=== PATIENT | female | born 1965 | race Caucasian/White ===

== ENCOUNTER 2017-02-08 11:22 | Emergency (ER) | payer OTHER ==
[2017-02-08 11:33] VITALS: BP 133/81; PULSE 75; TEMP 98.2; BMI 27.8
[2017-02-08] MEDS ORDERED: KETOROLAC TROMETHAMINE 30 MG/1 ML VIAL IM ONE (11:38)
--- NOTE | 2017-02-08 11:38 | PDOC ---
Attending Attestation - Resident Resident Name: AngieHeike - ED Attending Attestation I have performed the following: I have examined & evaluated the patient, The case was reviewed & discussed with the resident, I agree w/resident's findings & plan, Exceptions are as noted - HPI HPI: 02/08/17 14:41 51 yo F with ho chronic back pain s/p laminectomy and fusion lumbar sacaral spin, followed by Dr Hawkins on percocet 10/325 and valium 5mg, here with worsening pain and spasm. pt states the pain got much worse from baseline last pm no trauma no injury no change to activity. no urinary complaints. no weaknes or numbness that is new., pt states has mild chronic weakness in left leg and chronic sensory loss in her legs. no f/c no bowel or bladder incontinence. no mod factors. today was trying to take family member to doctor and pain became acutely worse. - Physicial Exam PE: 02/08/17 14:46 on exam pt awake alert, lungs clear bilaterally. heart rRR nomrg. abd soft NT ND. skin warm and dry. bilat lower ext 5/5 hip flex/ ext, knee flex / ext DF and PF. sensation mild decrease right anterior thign, ( old) no midline v. body tenderness. paraspinal pain lumbar region. no cva tenderness. - Medical Decision Making 02/08/17 11:36 51 yo F h/o treated breast CA, here with c/o low back pain spasm, normal nuero exam lower extremity strength. plan for xray spine due to h/o breast ca, nsaids , muscle relaxers, consider outpt steroids. reassess. 02/08/17 11:58 performed IStop evaluation to look at recent prescriptions., under name Paola Guerra, 61. receives narcotics 10/325 percocet and valim 5mg from dr. Kim her spine surgoen, last rx on 12/03/16 was given valium 5m #90, and perc 10mg/ 325 #90, also had same rx given 10/14/16. report number Reference #: [id number] . 02/08/17 14:48 pt feeling better, requesting to be dc home. has meds at home, no prescriptions given.
[2017-02-08] MEDS ORDERED: diazePAM 5 MG TABLET PO ONE ×2 (11:39→12:01)
[2017-02-08] MEDS ORDERED: KETOROLAC TROMETHAMINE 30 MG/1 ML VIAL ONE (11:47)
[2017-02-08] MEDS ORDERED: diazePAM 5 MG TABLET ONE ×2 (11:48→11:57)
--- NOTE | 2017-02-08 11:55 | PDOC ---
History of Present Illness - General Chief Complaint: Back Pain Stated Complaint: BACK PAIN Time Seen by Provider: 02/08/17 11:33 History Source: Patient Exam Limitations: No Limitations - History of Present Illness Initial Comments: 02/08/17 11:55 CC: Exacerbation of chronic back pain Patient is a 51 y.o. female with a PMH of lobular carcinoma (s/p B/L mastectomy) , four herniated discs (s/p laminectomy 2009 and spinal fusion 2011) who presents to our ED today c/o of back muscle spasm. Patient states she was helping her mother out of the car and felt pain in her back consistent with her prior exacerbation of her chronic back pain. Patient denies any urinary incontinence, fever, new loss of sensation or decreased range of motion. Patient notes she tried to call her spinal surgeon, Dr. Kim who manages her pain medication regimen, however he was out of town thus she came to the ED for pain relief. Timing/Duration: 1 hour Severity: moderate Modifying Factors: improves with: rest Associated Symptoms: reports: denies symptoms Past History - Past Medical History Allergies/Adverse Reactions: Allergies Allergy/AdvReac Type Severity Reaction Status Date / Time hydromorphone HCl AdvReac Intermediate Nausea Verified 07/13/16 15:02 [From Dilaudid] meperidine HCl [From Demerol] AdvReac Intermediate Nausea Verified 07/13/16 15: 02 Home Medications: Ambulatory Orders Gemfibrozil [Lopid -] 600 mg PO BID 08/03/11 Diazepam [Valium] 5 mg PO HS PRN 02/10/13 Docosahexanoic Acid/Epa [Fish Oil Softgel] 1 cap PO HS 08/08/13 Vitamin B Complex 100 mg PO DAILY 08/09/13 Magnesium 1,000 mg PO HS 04/12/14 l-Carnitine Fumarate [l-Carnitine] 200 mg PO DAILY 04/12/14 Thyroid,Pork [[place] Thyroid] 90 mg PO DAILY 07/29/14 Tizanidine HCl [Zanaflex] 4 mg PO HS PRN 07/29/14 Ibuprofen 600 mg PO QID PRN #30 tablet MDD 4 04/07/16 Niacin [Slo-Niacin] 250 mg PO BID 04/07/16 Turmeric Root Extract [Turmeric] 500 mg PO ASDIR 04/07/16 Ubidecarenone [Co Q-10] 10 mg PO BID 04/07/16 Anemia: No Asthma: No Cancer: Yes (Bilateral Breast) Cardiac Disorders: No CVA: No COPD: No CHF: No Dementia: No Diabetes: No GI Disorders: No Disorders: No HTN: No Hypercholesterolemia: No Liver Disease: No Suicide Attempt (Hx): No Seizures: No Thyroid Disease: No - Surgical History Abdominal Surgery: No Appendectomy: No Cardiac Surgery: No Cholecystectomy: No Lung Surgery: No Neurologic Surgery: No Orthopedic Surgery: Yes (Lumbar Fusion,Laminectomy) - Immunization History Immunization Up to Date: Yes - Psycho/Social/Smoking Cessation Hx Anxiety: No Suicidal Ideation: No Smoking Status: No Smoking History: Never smoked Have you smoked in the past 12 months: No Number of Cigarettes Smoked Daily: 0 Information on smoking cessation initiated: No Hx Alcohol Use: Yes (WEEKLY) Drug/Substance Use Hx: No Substance Use Type: Alcohol Hx Substance Use Treatment: No *Physical Exam - Vital Signs Last Vital Signs Temp Pulse Resp BP Pulse Ox 98.2 F 75 20 133/81 75 L 02/08/17 11:24 02/08/17 11:24 02/08/17 11:24 02/08/17 11:24 02/08/17 11:24 - Physical Exam General Appearance: Yes: Nourished, Appropriately Dressed HEENT: positive: EOMI, ANTON Neck: positive: Trachea midline, Supple Respiratory/Chest: positive: Lungs Clear, Normal Breath Sounds Cardiovascular: positive: Regular Rhythm, Regular Rate, S1, S2, Other (Patient intermittently tachycardic during initial PE - likely 2/2 to pain; tachcardia resolved during course of admission ) Musculoskeletal: positive: Normal Inspection (No midline tenderness, significant sacral TTP; Full ROM in back as well as UE/LE; no CVA tenderness) Extremity: positive: Normal Inspection 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 Patient does not exhibit any midline tenderness but has significant sacral TTP. Differential diagnosis includes exacerbation of chronic back pain vs. spinal metasasis of breast CA vs. cauda equina syndrome (less likely given no urinary incontinence) vs epidural abscess (less likely given absence of midline tenderness and no active infectious disease). A review of patient's pain meds on IStop showed that the patient has a single provider, Dr. Geovanny Kim for her pain management. As per IStop patient most recently recieved a prescription for Oxycodone (10/325) and Valium (5 mg) on 11/25/2016 which is consistent with the information provided by patient during her HPI. Spinal imaging showed no metasases and patient's pain was controlled with Toradol as well as her home dosage of Oxycodone and Decadron. Patient was discharged following significant improvement in her pain and instructed to follow-up with her spinal surgeon. *DC/Admit/Observation/Transfer Diagnosis at time of Disposition: Sacral back pain, Intractable low back pain - Discharge Dispostion Disposition: HOME Condition at time of disposition: Improved Admit: No - Patient Instructions Printed Discharge Instructions: Managing Chronic Low Back Pain, Back Pain ( Alternative Therapy), Exercise May Reduce Risk of Low Back Pain Additional Instructions: Please follow up with your PCP and spinal surgeon for further pain management. Please return to the ED should you experience severe pain or discomfort. - Attestations Physician Attestion: 02/08/17 14:16 I, Dr. Heike Adams, attest that this document has been prepared under my direction and personally reviewed by me in its entirety. I further attest, that it accurately reflects all work, treatment, procedures and medical decision -making performed by me.
[2017-02-08] MEDS ORDERED: OXYCODONE/APAP 5/325MG COMBO TABLET PO ONE (12:36)
[2017-02-08] MEDS ORDERED: diphenhydrAMINE HCL 25 MG CAPSULE (FP) PO ONE ×2 (12:45→12:49)
[2017-02-08] MEDS ORDERED: DEXAMETHASONE SOD PHOSPHATE 10 MG/1 ML VIAL IM ONE (13:16)
[2017-02-08] MEDS ORDERED: DEXAMETHASONE SOD PHOSPHATE 10 MG/1 ML VIAL ONE (13:17)
[2017-02-08] MEDS ORDERED: OXYCODONE/APAP 5/325MG COMBO TABLET ONE (13:24)
== END 2017-02-08 14:26 | disposition home or self-care (01) ==
LOC: FER 11:22
PROC: 3E033GC Introduction of Other Therapeutic Substance into Peripheral Vein, Percutaneous Approach (ICD-10-PCS; principal; 2017-02-08)
PROC: 3E0333Z Introduction of Anti-inflammatory into Peripheral Vein, Percutaneous Approach (ICD-10-PCS; 2017-02-08)
DX: M53.3 Sacrococcygeal disorders, not elsewhere classified (principal); M54.5 Low back pain; G89.29 Other chronic pain; Z85.3 Personal history of malignant neoplasm of breast; M51.9 Unspecified thoracic, thoracolumbar and lumbosacral intervertebral disc disorder
CPT/HCPCS: 72100-TC; 99282-25

== ENCOUNTER 2017-05-16 07:41 | Day surgery (SDC) | payer OTHER ==
[2017-05-09 16:08] VITALS: BMI 25.3
[2017-05-16] MEDS ORDERED: LIDOCAINE HCL/PF 2% SDV 5ML VIAL ONE ×2 (09:38→10:21)
[2017-05-16] MEDS ORDERED: PROPOFOL 20 ML ONE (09:39)
[2017-05-16] MEDS ORDERED: MIDAZOLAM HCL 2 MG/2 ML SINGLE DOSE VIAL ONE (09:39)
[2017-05-16] MEDS ORDERED: morphine CARPU-JECT 10 MG/1 ML DISP.SYRIN ONE (09:43)
[2017-05-16] MEDS ORDERED: BUPIVACAINE HCL/PF 0.5% (5MG/ML) 10 ML VIAL ONE (09:44)
[2017-05-16] MEDS ORDERED: ceFAZolin SODIUM 1 GM VIAL ONE ×2 (10:21)
[2017-05-16] MEDS ORDERED: DESFLURANE GAS 240 ML BOTTLE IH ONE (10:24)
[2017-05-16] MEDS ORDERED: oxyCODONE HCL 5 MG TABLET PO PRN (10:48)
[2017-05-16] MEDS ORDERED: PROMETHAZINE HCL 25 MG/1 ML VIAL IVPUSH PRN (10:48)
[2017-05-16] MEDS ORDERED: ONDANSETRON 4 MG/2 ML VIAL IVPUSH PRN (10:48)
[2017-05-16 12:29] VITALS: PULSE 59
[2017-05-16 14:15] VITALS: BP 128/77; TEMP 98
--- NOTE | 2017-05-17 13:13 | PATH ---
Surgical Pathology Report Patient Name: JANAE VELOZ [facility]. Rec. #: [id number] /Age/Gender: 1965 (Age: 51) / F Account: [id number] Location: [facility] Taken: 05/16/2017 Received: 05/16/2017 Reported: 05/17/2017 Physicians: Geovanny Kim M.D. Specimen(s) Received SHAVINGS LEFT KNEE Clinical History Internal derangement left knee Final Diagnosis KNEE, LEFT, ARTHROSCOPIC SHAVING: FIBROCARTILAGE WITH MYXOID DEGENERATIVE CHANGES, ALONG WITH PORTIONS OF SYNOVIUM AND HYALINE CARTILAGE. Electronically Signed Jaren Valentin M.D. Gross Description Received in formalin labeled "shavings left knee," is a 2.5 x 2.0 x 0.3 cm aggregate of nur-yellow soft tissue fragments. The specimen is submitted in toto in one cassette. /05/16/201705/16/2017
--- NOTE | 2017-05-18 08:35 | OP ---
DATE OF OPERATION: 05/16/2017 PREOPERATIVE DIAGNOSIS: Torn medial meniscus to the left knee. POSTOPERATIVE DIAGNOSIS: Torn medial and lateral meniscus, left knee, with chondromalacia, hypertrophic synovium, and joint debris. PROCEDURE PERFORMED: Operative arthroscopy, left knee, with partial medial and lateral meniscectomies, chondroplasty, synovectomy, and joint debridement. SURGEON: Geovanny Kim MD GRAPHITE MILL OPERATOR: Celso Banda ANESTHESIOLOGIST: Wiley Kay MD ANESTHESIA: General anesthesia. PROCEDURE: Consisted of the patient being brought into the operating room and gently transferred from the stretcher to the OR table with all bony prominences well padded. The left leg was prepared and draped in sterile fashion. The patient was given intravenous antibiotics and copious irrigation throughout the procedure to minimize the risk for infection. A complete [id number] discussion was conducted with the patient. Risks included, but were not limited to, infection, bleeding, , paralysis, increased pain, and need for repeat surgery. The patient asked questions, understood the nature of the procedure and desired to proceed with surgical treatment. An appropriate time-out was conducted which was inclusive of, but not limited to, site of surgery, type of surgery, surgeon, anesthesiologist. Following sterile preparation and draping of the left leg, leg was exsanguinated using an Esmarch bandage, and tourniquet was inflated to 325 mmHg. Suprapatellar and medial and lateral joint line portals were used to introduce the arthroscope and arthroscopic instruments. The knee was examined. There was noted to be hypertrophic synovium in the suprapatellar pouch and partial synovectomy was performed. Medial and lateral gutters without loose body. Medial meniscus was found to have a tear at the posterior horn, and this resected using a shaver and performed. Intercondylar of the joint debrided, and joint debridement was performed. Anterior and posterior cruciate ligaments were found to be intact. Lateral meniscus was found to have a tear of the posterior horn, and this was resected using shaver and . The knee was then copiously irrigated with sterile saline irrigant. Wounds were closed with 4-0 undyed Vicryl. We applied Steri-Strips, Xeroform, 4x4s, a sterile Woodrow bandage, and knee immobilizer. The tourniquet was deflated after approximately 20 minutes of tourniquet time. There were no intraoperative complications. Fredy [id number]
== END 2017-05-16 13:25 | disposition home or self-care (01) ==
LOC: FASU 07:41
PROVIDERS: ATTEND Orthopaedic Surgery
PROC: 0SBD4ZZ Excision of Left Knee Joint, Percutaneous Endoscopic Approach (ICD-10-PCS; 2017-05-16)
PROC: 0SBD4ZZ Excision of Left Knee Joint, Percutaneous Endoscopic Approach (ICD-10-PCS; 2017-05-16)
PROC: 0SBD4ZZ Excision of Left Knee Joint, Percutaneous Endoscopic Approach (ICD-10-PCS; principal; 2017-05-16 10:18)
DX: S83.242A Other tear of medial meniscus, current injury, left knee, initial encounter (principal); S83.282A Other tear of lateral meniscus, current injury, left knee, initial encounter; M94.262 Chondromalacia, left knee; M67.262 Synovial hypertrophy, not elsewhere classified, left lower leg; M23.42 Loose body in knee, left knee
CPT/HCPCS: 84703; 88304-TC; 94760

== ENCOUNTER 2018-11-03 08:25 | Day surgery (SDC) | payer OTHER ==
[2018-11-02 16:24] VITALS: BMI 26.7
[2018-11-03] MEDS ORDERED: MIDAZOLAM HCL 2 MG/2 ML SINGLE DOSE VIAL ONE ×2 (09:15→10:45)
[2018-11-03] MEDS ORDERED: KETOROLAC TROMETHAMINE 30 MG/1 ML VIAL ONE ×2 (09:16→11:07)
[2018-11-03] MEDS ORDERED: DEXAMETHASONE SOD PHOSPHATE 4 MG/1 ML VIAL ONE (09:16)
[2018-11-03] MEDS ORDERED: PROPOFOL 20 ML ONE ×5 (09:16→10:28)
[2018-11-03] MEDS ORDERED: LIDOCAINE HCL/PF 2% SDV 5ML VIAL ONE ×2 (09:16→10:33)
[2018-11-03] MEDS ORDERED: SUCCINYLCHOLINE CHLORIDE 200 MG/10 ML VIAL ONE (09:18)
[2018-11-03] MEDS ORDERED: ROCURONIUM BROMIDE 50 MG/5 ML VIAL ONE (09:18)
[2018-11-03] MEDS ORDERED: SEVOFLURANE 250 ML BTL ONE (09:24)
[2018-11-03] MEDS ORDERED: DESFLURANE GAS 240 ML BOTTLE IH ONE (09:24)
[2018-11-03] MEDS ORDERED: LIDOCAINE 1%-EPI 1:100,000 30 ML MDV IJ ONE ×2 (09:31→10:28)
[2018-11-03] MEDS ORDERED: GENTAMICIN SO4 80 MG/2 ML VIAL ONE (09:31)
[2018-11-03] MEDS ORDERED: BUPIVACAINE HCL/PF 0.5% (5MG/ML) 10 ML VIAL ONE (09:31)
[2018-11-03] MEDS ORDERED: oxyCODONE HCL 5 MG TABLET PO PRN ×2 (09:44)
[2018-11-03] MEDS ORDERED: ONDANSETRON 4 MG/2 ML VIAL IVPUSH PRN (09:44)
[2018-11-03] MEDS ORDERED: LACTATED RINGERS SOLUTION 1,000 ML IV SCH (09:45)
[2018-11-03] MEDS ORDERED: ACETAMINOPHEN INJECTION 100 ML IVPB ONE (09:46)
[2018-11-03] MEDS ORDERED: ceFAZolin SODIUM 1 GM VIAL IVPB ONE (10:25)
[2018-11-03] MEDS ORDERED: LIDOCAINE HCL 1%, 10 MG/ML (20ML VIAL) ONE (10:28)
[2018-11-03] MEDS ORDERED: KETAMINE HCL 200 MG/20 ML VIAL ONE (10:31)
[2018-11-03] MEDS ORDERED: ceFAZolin SODIUM 1 GM VIAL ONE (10:33)
[2018-11-03] MEDS ORDERED: BACITRACIN 15 GM TUBE TOPICAL OINTMENT ONE (12:19)
--- NOTE | 2018-11-03 12:52 | OP ---
Operative Note - Note: Operative Date: 11/03/18 Pre-Operative Diagnosis: Bilateral Acquired chest wall deformity s/p mastectomy. Asymmetry of reconstructed chest wall. Malposition of breast implant. Mechanical complication of breast implant Operation: Mini abdominoplasty, bilateral breast reconstruction with subcutaneous fat transfer, left breast capsulotomy removal and replacement of Left breast implant, capsulorrhaphy of left breast Findings: as dictated Implants: as dictated Post-Operative Diagnosis: Same as Pre-op Surgeon: Yevgeniy Rodrigues Scientific Editor: Dao Grimes Anesthesiologist/BANKRUPTCY LAW SPECIALIST: Celso Ralph Anesthesia: General Specimens Removed: left breast tissue, left breast implant Estimated Blood Loss (mls): 10 (ml) Fluid Volume Replaced (mls): 1,400 (ml LR) Operative Report Dictated: Yes
[2018-11-03 14:02] VITALS: TEMP 97.9
[2018-11-03] MEDS ORDERED: oxyCODONE HCL 5 MG TABLET ONE (14:17)
[2018-11-03] MEDS ORDERED: ONDANSETRON 4 MG/2 ML VIAL ONE (14:17)
[2018-11-03 16:13] VITALS: BP 110/72; PULSE 82
--- NOTE | 2018-11-03 18:49 | OP ---
DATE OF OPERATION: 11/03/2018 SURGEON: Ilir Rodrigues M.D. ELECTRICAL CONTROLS ENGINEER SURGEON: Haley DE ANDA PREOPERATIVE DIAGNOSIS: 1. Bilateral acquired chest wall deformity status post bilateral mastectomy for cancer. 2. Asymmetry of reconstructed chest wall. 3. Malposition of breast implant. 4. Mechanical complication of breast implant. PREOPERATIVE DIAGNOSIS: 1. Bilateral acquired chest wall deformity status post bilateral mastectomy for cancer. 2. Asymmetry of reconstructed chest wall. 3. Malposition of breast implant. 4. Mechanical complication of breast implant. OPERATIVE PROCEDURE: 1. Right breast reconstruction utilizing other technique. 2. Left breast reconstruction utilizing other technique. 3. Left breast capsulotomy removal and replacement of left breast implant. 4. Capsulorrhaphy of left breast. OPERATIVE INDICATION: The patient is a 53-year-old white female who underwent bilateral mastectomy and now presents with gross asymmetry to chest wall, malposition of the left breast implant, and need for reconstruction with the above procedure. The risks and benefits of surgical versus nonsurgical alternatives as well as material complications were described to patient on multiple occasions preoperatively, and she agreed to the planned procedure. Patient was marked today in the holding area in a standing position with outline of the procedure and discussion was held again, all questions were asked and answered. OPERATIVE PROCEDURE IN DETAIL: The patient was taken to the operating room and after induction of general anesthesia in supine position, both arms were extended and padded, Venodyne boots were placed. At this point, attention was turned to the mastectomy scars. These were injected with 1% local lidocaine anesthesia with 1:100,000 epinephrine for hemostasis. Also the abdominal area was prepped for reconstruction with other technique. The previous scar was incorporated into the planned procedure for harvest of reconstructive tissue. At this point, an incision was made on the left mastectomy scar after timeout, down through the skin to the subcutaneous tissue, through the subcutaneous tissue into the underlying capsule. The capsule was then opened, and implant was removed and sent for pathologic diagnosis. Copious irrigation of the pocket was carried out with antibiotic solution and the malposition was seen on the inferior pole of the breast. At this point, a block of tissue was removed in order to perform capsulorrhaphy of the inferior pole of the breast, and this tissue on the left breast was sent for pathologic diagnosis. At this point, a 0 V-Loc suture in interrupted and running fashion was carried out closing the lower portion of the pocket in order to correct the malposition. This was placed using multiple sutures on the inframammary fold and into the subcutaneous tissue of the lower skin flap. After this was accomplished, attention was turned to the abdominal wall. The previous scar was inscribed as well as extending laterally. Tissue was then harvested for reconstructive purposes down through the skin and subcutaneous tissue just above the rectus muscle and external oblique fascia. The tissue was harvested and transferred to the back table, washed, cleansed, and prepared for reconstruction. The donor site was then closed after hemostasis was obtained with interrupted running sutures of 2-0 Vicryl suture on the deep tissue, 3-0 on the deep dermal fascia, and subcuticular suture with 3-0 V-Loc suture. Tissue was then transferred to the right and left breast independently, transferring this to the right breast in the superior, medial, central, and inferior portions of the right breast, and the superior, medial, central, and inferior portions of the left breast. At this point, an implant was chosen for the left breast, and Natrelle Inspira SRX 800 mL volume implant was placed into the left breast pocket for symmetry. This was copiously irrigated with triple antibiotic solution and then closed in multiple layers using 2-0 Vicryl sutures on the deepest tissue, 2-0 in the deep dermal fascia, and running subcuticular suture with 3-0 V-Loc suture. Good shape and contour was seen in the sitting position, all wounds were dressed sterilely with Dermabond, Steri-Strips, and a compressive dressing. Patient was awakened, extubated, and transferred to the recovery room in satisfactory condition in a Surgi-Bra. She tolerated the procedure well. ILIR RODRIGUES M.D. [id number] MTDD
--- NOTE | 2018-11-06 19:13 | PATH ---
Surgical Pathology Report Patient Name: JANAE VELOZ Med. Rec. #: [id number] /Age/Gender: 1965 (Age: 53) / F Account: [id number] Location: [facility] Taken: 11/03/2018 Received: 11/03/2018 Reported: 11/06/2018 Physicians: Yevgeniy Rodrigues Specimen(s) Received A: LEFT BREAST IMPLANT B: LEFT BREAST TISSUE Clinical History Breast cancer Final Diagnosis A. LEFT BREAST IMPLANT, REMOVAL: BREAST IMPLANT, MACROSCOPIC DIAGNOSIS. B. BREAST TISSUE, LEFT, EXCISION.: BENIGN PREDOMINANTLY FATTY BREAST TISSUE WITH FOCAL DENSE FIBROSIS CONSISTENT WITH PORTION OF FIBROUS CAPSULE. Electronically Signed Shraddha Henderson M.D. Gross Description A. Received fresh labeled "left breast implant," is a 15 cm in diameter x 5 cm in depth clear, rubbery, intact breast implant. No soft tissue is present. No sections are submitted, gross only. B. Received in formalin labeled "left breast tissue," is a 36 g, 7.5 x 5.0 x 2.5 cm unoriented portion of fibroadipose tissue with no needle localization wire present. There is no skin or nipple present. Sectioning reveals foci of possible fibrous capsule. Practice Lead sections are submitted in one cassette. 11/04/2018 [facility]11/04/2018
== END 2018-11-03 16:13 | disposition home or self-care (01) ==
LOC: JASU-SURG 08:25
PROVIDERS: ATTEND Plastic Surgery
PROC: 0HRU0JZ Replacement of Left Breast with Synthetic Substitute, Open Approach (ICD-10-PCS; 2018-11-03)
PROC: 0HNU0ZZ Release Left Breast, Open Approach (ICD-10-PCS; 2018-11-03)
PROC: 0HWU0JZ Revision of Synthetic Substitute in Left Breast, Open Approach (ICD-10-PCS; principal; 2018-11-03 10:00)
PROC: 0HRU0JZ Replacement of Left Breast with Synthetic Substitute, Open Approach (ICD-10-PCS; 2018-11-03 10:00)
PROC: 0HPU0JZ Removal of Synthetic Substitute from Left Breast, Open Approach (ICD-10-PCS; 2018-11-03 10:00)
DX: M95.4 Acquired deformity of chest and rib (principal); N64.89 Other specified disorders of breast; T85.42XA Displacement of breast prosthesis and implant, initial encounter
CPT/HCPCS: 84703; 88300-TC; 88305-TC; J0131

== ENCOUNTER 2023-06-02 09:04 | Day surgery (SDC) | payer OTHER ==
[2023-05-30 14:05] VITALS: BMI 27.4
[2023-06-02] MEDS ORDERED: ceFAZolin SODIUM 1 GM VIAL ONE ×3 (10:54→13:54)
[2023-06-02] MEDS ORDERED: VANCOMYCIN 1,000 MG VIAL (RESTRICTED TO ID ONLY) ONE ×2 (10:54→13:54)
[2023-06-02] MEDS ORDERED: GENTAMICIN SO4 80 MG/2 ML VIAL ONE ×2 (10:54→13:55)
[2023-06-02] MEDS ORDERED: BUPIVACAINE HCL/EPINEPHRINE/PF 30 ML VIAL IJ ONE (10:55)
[2023-06-02] MEDS ORDERED: DEXAMETHASONE SOD PHOSPHATE 4 MG/1 ML VIAL ONE (11:42)
[2023-06-02] MEDS ORDERED: ONDANSETRON 4 MG/2 ML VIAL ONE ×2 (11:42→15:17)
[2023-06-02] MEDS ORDERED: MIDAZOLAM HCL 2 MG/2 ML SINGLE DOSE VIAL ONE (11:42)
[2023-06-02] MEDS ORDERED: KETOROLAC TROMETHAMINE 30 MG/1 ML VIAL ONE (11:42)
[2023-06-02] MEDS ORDERED: PROPOFOL 20 ML ONE ×2 (11:42→12:19)
[2023-06-02] MEDS ORDERED: ROCURONIUM BROMIDE 50 MG/5 ML SYRINGE ONE (11:50)
[2023-06-02] MEDS ORDERED: BUPIVACAINE 0.25% /EPI 1:200,000 10 ML VIAL NR ONE (12:08)
[2023-06-02] MEDS ORDERED: SUGAMMADEX SODIUM 200 MG/2 ML VIAL ONE (13:17)
[2023-06-02] MEDS ORDERED: ONDANSETRON 4 MG/2 ML VIAL IVPUSH PRN (13:46)
[2023-06-02] MEDS ORDERED: oxyCODONE HCL 5 MG TABLET PO PRN ×2 (13:46)
[2023-06-02] MEDS ORDERED: PROMETHAZINE HCL 25 MG/1 ML VIAL IVPB PRN (13:46)
[2023-06-02] MEDS ORDERED: FENTANYL CITRATE/PF 50 MCG/ML VIAL ONE ×2 (14:10→14:17)
[2023-06-02] MEDS ORDERED: oxyCODONE HCL 5 MG TABLET ONE (14:53)
[2023-06-02 15:02] VITALS: RESP 18; TEMP 98
[2023-06-02 16:02] VITALS: BP 118/50; PULSE 64
== END 2023-06-02 16:02 | disposition home or self-care (01) ==
LOC: FASU 09:04
PROVIDERS: ATTEND Plastic Surgery
PROC: 0HWT0JZ Revision of Synthetic Substitute in Right Breast, Open Approach (ICD-10-PCS; 2023-06-02)
PROC: 0JX60ZB Transfer Chest Subcutaneous Tissue and Fascia with Skin and Subcutaneous Tissue, Open Approach (ICD-10-PCS; 2023-06-02)
PROC: 0JX60ZB Transfer Chest Subcutaneous Tissue and Fascia with Skin and Subcutaneous Tissue, Open Approach (ICD-10-PCS; 2023-06-02)
PROC: 0HWU0JZ Revision of Synthetic Substitute in Left Breast, Open Approach (ICD-10-PCS; principal; 2023-06-02 12:08)
DX: Z90.13 Acquired absence of bilateral breasts and nipples (principal); N65.0 Deformity of reconstructed breast
CPT/HCPCS: 14000; 15777; 19342; 19371; L8600; 88304-TC; 88305-TC; 94760; C1789; Q4116